=== PATIENT | male | born 1940 | race Caucasian/White ===

== ENCOUNTER 2018-09-06 18:55 | Inpatient (IN) ==
[2018-09-07] MEDS: Gabapentin 300 MG CAPSULE PO SCH (22:27)
[2018-09-07] MEDS: Vitamin B Complex/Vit C/Vit E 1 EACH TABLET PO SCH (22:28)
[2018-09-07] MEDS: Multivit/Ca/Min/Fe/FA 1 TAB TABLET PO SCH (22:28)
[2018-09-07] MEDS: BOSWELLIA SERRA PO SCH (22:38)
[2018-09-07] MEDS: D3 PO SCH (22:38)
[2018-09-07] MEDS: GLUCOSAMINE PO SCH (22:38)
[2018-09-08 06:12] LABS: Basophils % 0.2 %; Eosinophils # 0.2 K/mcL (0.0-0.6); Eosinophils % 1.5 %; Hematocrit 26.1 % (37.5-50.1); Hemoglobin 8.8 g/dL (12.9-16.9); Immature Granulocytes % 0.8 % (0-4); Lymphocytes # 1.7 K/mcL (0.6-4.6); Lymphocytes % 15.3 %; Mean Corpuscular HGB Conc 33.7 g/dL (31.6-35.5); Mean Corpuscular Hemoglobin 30.3 pg (28.0-33.3); Mean Platelet Volume 8.5 fL (9.4-12.4); Monocytes # 1.1 K/mcL (0.0-1.3); Monocytes % 10.4 %; Neutrophils # 7.8 K/mcL (1.6-8.9); Platelet Count 241 K/mcL (140-400); Red Cell Distribution Width 12.5 % (11.5-14.5); Segmented Neutrophils % 71.8 %
[2018-09-08 06:33] LABS: INR 1.2; Prothrombin Time 13.6 Seconds (9.4-12.1)
[2018-09-08 06:36] LABS: Activated Partial Thrombo Time 26.9 Seconds (26.0-36.0)
[2018-09-08 06:38] LABS: BUN/Creatinine Ratio 10 (6-26); Blood Urea Nitrogen 12 mg/dL (8-23); Calcium 8.5 mg/dL (8.6-10.3); Carbon Dioxide 24 mEq/L (23-29); Chloride 105 mEq/L (98-107); Glucose 229 mg/dL (70-105); Osmolality,Calculated 285 (280-300); Potassium 4.7 mEq/L (3.5-5.1); Sodium 134 mEq/L (136-145); eGFR For Non-African Americans > 60 (> 60)
[2018-09-08] MEDS: Lisinopril 20 MG TABLET PO SCH (09:54)
[2018-09-08] MEDS: (Ubidecarenone [Co Q-10] 200 MG) PO SCH (09:54)
[2018-09-08] MEDS: Gabapentin 300 MG CAPSULE PO SCH ×3 (09:55→20:26)
--- NOTE | 2018-09-08 13:47 | Internal Med History&Physical ---
Addendum entered and electronically signed by Kishore Terrell DO 09/10/18 11:21: I have personally performed a face to face evaluation on this patient. I have reviewed and agree with the care plan. History and Exam by me shows: Original Note: Date of Encounter: 09/08/18 Time of Encounter: 13:39 Assessment and Plan (1) S/P colostomy Current visit: Yes Status: Acute Patient having stool. Denies abdominal pain. Will monitor. (2) Bladder cancer Current visit: Yes Status: Chronic Follow-up with oncology as scheduled. Qualifiers: Bladder location: unspecified site Qualified Code(s): C67.9 - Malignant neoplasm of bladder, unspecified (3) Hypothyroidism Current visit: Yes Status: Acute Continue current medication. Qualifiers: Hypothyroidism type: unspecified Qualified Code(s): E03.9 - Hypothyroidism, unspecified (4) Diabetes type 2, controlled Current visit: Yes Status: Chronic Continue current medication. Monitor fingerstick blood sugar. Will adjust m edicines as necessary. Qualifiers: Diabetes mellitus fdc insulin use: without terminal operator use Diabetes mellitus complication status: without complication Qualified Code(s): E11.9 - Type 2 diabetes mellitus without complications (5) HLD (hyperlipidemia) Current visit: Yes Status: Chronic Continue current medication. Qualifiers: Hyperlipidemia type: unspecified Qualified Code(s): E78.5 - Hyperlipidemia, unspecified (6) HTN (hypertension) Current visit: Yes Status: Acute Controlled with current medication. Monitor blood pressure. Qualifiers: Hypertension type: essential hypertension Qualified Code(s): I10 - Essential (primary) hypertension Internal Medicine - H&P: HPI Admitted From: Hospital to Hospital Transfer Plans for Post Hospital Care: Home History of present illness: Mr. Ramirez is a 78 year old male admitted to rehab s/p cystectomy and prosta tectomy. Ambulating with Walker in hallway with contact guard assist. States pain is controlled with current medication. Also had pelvic lymph node dissection and ileal conduit diversion on August 13 for bladder cancer. Was admitted to hospital with fever, elevated white count and diarrhea. Was treated for sepsis with IV fluids and oral vancomycin. tested negative for c-diff. Past medical history includes anxiety, CAD, hypothyroidism diabetes, Gerd, hyperlipidemia, hypertension, kidney stone, malignant neoplasm of the bladder and obstructive sleep apnea. at bedside. Past Med Surg Social Fam HX - Past Medical History Medical history: cancer, coronary artery disease, diabetes, GERD, hyperlipidemia, hypertension, kidney stones, thyroid disease Additional medical history: Bladder Cancer Psychiatric history: depression - Past Surgical History Surgical History: cancer surgery, cataract, orthopedic, other, other Additional surgical history: nephrectomy, lithotripsy - Social History Smoking Status: Never smoker Smokeless Tobacco Status: No Alcohol use: none Drug use: none - Family History Father Adopted: No Family Member Ethnicity: Non- Living Status: Hx Family Cardiac Disorders: No Hx Family Respiratory Disorders: No Hx Family Cancer: Yes (Prostate) Hx Family GI Disorders: No Hx Family Endocrine Disorder: No Hx Family Neuromuscular Disorders: No Hx Family Neurologic Disorders: No Hx Family HEENT Disorders: No Hx Family Autoimmune Disorders: No Mother Living Status: Hx Family Cardiac Disorders: Yes (Hypertension) Hx Family Cancer: Yes (Colon) Hx Family Endocrine Disorder: Yes (diabetes) Internal Medicine - H&P: Meds Glucosamine/D3/Boswellia Msasiel [Osteo Bi-Flex Tablet] 2 tab PO HS 11/27/16 [History] Lansoprazole [Prevacid] 60 mg PO BID 11/27/16 [History] Polyethylene Glycol 3350 [MiraLAX] 17 gm PO DAILY 11/27/16 [History] Ubidecarenone [Co Q-10] 200 mg PO DAILY 11/27/16 [History] Gabapentin [Neurontin] 300 mg PO TID 01/08/17 [History] Glimepiride [Amaryl] 4 mg PO DAILY PRN 01/08/17 [History] Lisinopril [Zestril] 20 mg PO DAILY 01/08/17 [History] Aspirin 81 mg PO DAILY 09/18/17 [History] Docusate Sodium [Dok] 100 mg PO HS 09/18/17 [History] Escitalopram [Lexapro] 10 mg PO BID 09/18/17 [History] Levothyroxine [Synthroid] 50 mcg PO QAM 09/18/17 [History] Multivit-Min/FA/Lycopen/Lutein [Centrum Silver Tablet] 1 tab PO HS 09/18/17 [History] Pravastatin Sodium [Pravachol] 40 mg PO DAILY 09/18/17 [History] Vitamin B Complex Vit C No.4 [Super B Complex] 1 tab PO HS 09/18/17 [History] Metformin HCl [Glucophage] 1,000 mg PO BID #90 09/19/17 [Rx] Acetaminophen [Pain Relief] 1,000 mg PO BID 11/11/17 [History] Meloxicam [Mobic] 7.5 mg PO DAILY 02/18/18 [History] Oxybutynin [Ditropan] 5 mg PO DAILY 06/18/18 [History] HYDROcodone/Acet 5/325 mg [Bowdle 5-325 mg] 1 tab PO Q6H PRN 10 Days #3 tab 08/02/18 [Rx] Oxybutynin [Ditropan] 5 mg PO TID #30 tablet 08/02/18 [Rx] Allergy/AdvReac Type Severity Reaction Status Date / Time Penicillins Allergy Hives Verified 08/02/18 12:03 All Systems PM: A 10-system review of systems was performed and is negative for pertinent findings except as documented above in the HPI. - Constitutional Constitutional: no chills, no fever(s), no night sweats - EENT Eyes: no change in vision, no discharge, no pain, no photophobia Ears: no ear discharge, no ear pain, no tinnitus Nose, mouth and throat: no dysphagia, no nasal discharge, no neck pain, no sore throat - Cardiovascular Cardiovascular ROS IM: no chest pain, no diaphoresis, no dyspnea, no lightheadedness, no palpitations, no syncope - Respiratory Respiratory: no cough, no dyspnea, no wheezing, no excessive phlegm production - Gastrointestinal Gastrointestinal: no abdominal pain, no diarrhea, no hematemesis, no hematochezia, no melena, no nausea, no vomiting - Musculoskeletal Musculoskeletal ROS IM: no numbness, no tingling - Integumentary Integumentary IM: no rash, no unusual bruising - Neurological Neurological ROS: no confusion, no convulsions, no focal weakness, no numbness, no tingling, no tremor(s) - Hematologic/Lymphatic Hematologic/Lymphatic: no easy bruising - Constitutional Vitals: Temp Pulse Resp BP Pulse Ox 97.3 F L 95 17 128/76 98 09/08/18 12:28 09/08/18 12:28 09/08/18 12:28 09/08/18 12:28 09/08/18 12:28 General appearance: Present: cooperative, A&O X 3, pleasant, no acute distress, answers questions appropriately - Head Head exam: Present: atraumatic, normocephalic - Eye Eye exam: Present: PERRL, conjuntiva pink, sclera anicteric Pupils: Present: PERRL - Neck Neck exam general surgery: Present: supple, trachea midline. Absent: lymphadeno arnoldo - Respiratory Respiratory exam: Present: CTAB. Absent: accessory muscle use, rales, rhonchi, wheezes - Cardiovascular Cardiovascular exam: Present: RRR, +S1, +S2. Absent: diastolic murmur, gallop, rubs, systolic murmur - GI/Abdominal GI/Abdominal exam: Present: normal bowel sounds, soft, no peritoneal signs. Absent: distended, tenderness Additional comments: Palmer catheter in place and colostomy on right abdomen draining. Stoma red with white-karey drainage surrounding. - Extremities Exam Extremities exam: Present: warm, radial pulses palpable and symmetrical. Absent: calf tenderness, cyanotic, pedal edema - Neurological Exam Neurological exam: Present: CN II-XII intact, oriented X3, no focal deficits. Absent: pronater drift, facial droop, speech deficit - Skin Skin exam: Present: dry, intact Additional comments: Old left abdomen drain site. Drain was pulled yesterday. Area is having mode rate amount of serous drainage. Internal Med - H&P Results - Labs CBC & Chem 7: 09/08/18 05:50 09/08/18 05:50 Labs: Short CBC 09/08/18 Range/Units 05:50 WBC 10.8 D (4.3-11.1) K/mcL Hgb 8.8 L (12.9-16.9) g/dL Hct 26.1 L (37.5-50.1) % Plt Count 241 (140-400) K/mcL Neutrophils # 7.8 (1.6-8.9) K/mcL BMP 09/08/18 05:50 Sodium 134 L Potassium 4.7 Chloride 105 Carbon Dioxide 24 BUN 12 Creatinine 1.18 Glucose 229 H Calcium 8.5 L
[2018-09-08] MEDS: Vitamin B Complex/Vit C/Vit E 1 EACH TABLET PO SCH (20:26)
[2018-09-08] MEDS: Multivit/Ca/Min/Fe/FA 1 TAB TABLET PO SCH (20:26)
[2018-09-08] MEDS: BOSWELLIA SERRA PO SCH (20:26)
[2018-09-08] MEDS: D3 PO SCH (20:26)
[2018-09-08] MEDS: GLUCOSAMINE PO SCH (20:26)
[2018-09-09] MEDS: *HR* HYDROcodone/Acet 5/325 mg TABLET PO PRN ×2 (02:34→19:43)
[2018-09-09] MEDS: Lisinopril 20 MG TABLET PO SCH (10:31)
[2018-09-09] MEDS: Gabapentin 300 MG CAPSULE PO SCH ×3 (10:33→19:43)
[2018-09-09] MEDS: (Ubidecarenone [Co Q-10] 200 MG) PO SCH (10:35)
[2018-09-09] MEDS ORDERED: *HR* Dextrose 50 % in Water (Syg) 50 ML SYRINGE IVP PRN (12:11)
[2018-09-09] MEDS ORDERED: Dextrose Gel 15 GM/37.5 ML TUBE PO PRN ×2 (12:11)
[2018-09-09] MEDS ORDERED: D5% in Water 1,000 ML IVC PRN (12:11)
[2018-09-09] MEDS: Insulin LISPRO 300 UNITS/3 ML VIAL SQ SCH ×3 (12:31→20:58)
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
[2018-09-09] MEDS ORDERED: Insulin LISPRO 300 UNITS/3 ML VIAL SQ SCH (16:30)
[2018-09-09] MEDS: Vitamin B Complex/Vit C/Vit E 1 EACH TABLET PO SCH (19:43)
[2018-09-09] MEDS: Multivit/Ca/Min/Fe/FA 1 TAB TABLET PO SCH (19:43)
[2018-09-09] MEDS: BOSWELLIA SERRA PO SCH (19:44)
[2018-09-09] MEDS: GLUCOSAMINE PO SCH (19:44)
[2018-09-09] MEDS: D3 PO SCH (19:44)
[2018-09-10] MEDS: Lisinopril 20 MG TABLET PO SCH (08:43)
[2018-09-10] MEDS: Insulin LISPRO 300 UNITS/3 ML VIAL SQ SCH ×4 (08:44→21:53)
[2018-09-10] MEDS: Gabapentin 300 MG CAPSULE PO SCH ×3 (08:44→21:56)
[2018-09-10] MEDS: (Ubidecarenone [Co Q-10] 200 MG) PO SCH (08:45)
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
[2018-09-10] MEDS ORDERED: Insulin DETEMIR 100 UNIT/ML X5UNITS SQ SCH (21:00)
[2018-09-10] MEDS: Multivit/Ca/Min/Fe/FA 1 TAB TABLET PO SCH (21:56)
[2018-09-10] MEDS: *HR* HYDROcodone/Acet 5/325 mg TABLET PO PRN (21:57)
[2018-09-10] MEDS: Vitamin B Complex/Vit C/Vit E 1 EACH TABLET PO SCH (21:58)
[2018-09-10] MEDS: GLUCOSAMINE PO SCH (21:59)
[2018-09-10] MEDS: BOSWELLIA SERRA PO SCH (21:59)
[2018-09-10] MEDS: D3 PO SCH (21:59)
[2018-09-11] MEDS: *HR* HYDROcodone/Acet 5/325 mg TABLET PO PRN (05:12)
[2018-09-11] MEDS: Lisinopril 20 MG TABLET PO SCH (08:17)
[2018-09-11] MEDS: Gabapentin 300 MG CAPSULE PO SCH ×3 (08:17→20:48)
[2018-09-11] MEDS: (Ubidecarenone [Co Q-10] 200 MG) PO SCH (08:18)
[2018-09-11] MEDS: Insulin LISPRO 300 UNITS/3 ML VIAL SQ SCH ×4 (08:19→20:50)
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
[2018-09-11] MEDS: Multivit/Ca/Min/Fe/FA 1 TAB TABLET PO SCH (20:47)
[2018-09-11] MEDS: Vitamin B Complex/Vit C/Vit E 1 EACH TABLET PO SCH (20:47)
[2018-09-11] MEDS: Lactobacillus 1 EACH CAP.SPRINK PO SCH (20:48)
[2018-09-11] MEDS: GLUCOSAMINE PO SCH (20:48)
[2018-09-11] MEDS: D3 PO SCH (20:48)
[2018-09-11] MEDS: BOSWELLIA SERRA PO SCH (20:48)
[2018-09-11] MEDS: Simethicone 80 MG TAB.CHEW PO SCH (20:48)
[2018-09-11] MEDS: Insulin DETEMIR 100 UNIT/ML X5UNITS SQ SCH (20:50)
[2018-09-12 05:13] LABS: Hematocrit 28.6 % (37.5-50.1); Hemoglobin 9.4 g/dL (12.9-16.9); Mean Corpuscular HGB Conc 32.9 g/dL (31.6-35.5); Mean Corpuscular Hemoglobin 29.8 pg (28.0-33.3); Mean Corpuscular Volume 90.8 fL (83.0-100.0); Mean Platelet Volume 8.6 fL (9.4-12.4); Platelet Count 304 K/mcL (140-400); Red Blood Count 3.15 M/mcL (4.19-5.50); Red Cell Distribution Width 12.7 % (11.5-14.5)
[2018-09-12 05:32] LABS: Calcium 9.3 mg/dL (8.6-10.3); Potassium 4.6 mEq/L (3.5-5.1)
[2018-09-12] MEDS: Lactobacillus 1 EACH CAP.SPRINK PO SCH ×2 (08:26→19:54)
[2018-09-12] MEDS: Gabapentin 300 MG CAPSULE PO SCH ×3 (08:26→19:54)
[2018-09-12] MEDS: (Ubidecarenone [Co Q-10] 200 MG) PO SCH (08:27)
[2018-09-12] MEDS: Simethicone 80 MG TAB.CHEW PO SCH ×2 (08:27→19:55)
[2018-09-12] MEDS: Lisinopril 20 MG TABLET PO SCH (08:27)
[2018-09-12] MEDS: Insulin LISPRO 300 UNITS/3 ML VIAL SQ SCH ×4 (08:28→20:01)
--- NOTE | 2018-09-12 12:41 | Internal Med Progress Note ---
Addendum entered and electronically signed by Luis F Nava MD 09/12/18 14:46: Patient is concerned about feeling fatigued all the time. He is also concerned about his high sugar. I told him and that we would watch and is no sign of infection, symptomatically or otherwise. If symptoms change, they know that they are to inform us. Discussed care with other providers and/or nursing. Patient has no complaint of chest discomfort, dyspnea, orthopnea, palpitations, nausea or vomiting, constipation or diarrhea, other changes in bowel habits, difficulty with urination, rash or itching, or other new complaints, except as mentioned above. Review of systems is otherwise negative. Examination: (Except as mentioned above): General: In no apparent distress. Alert and oriented 3. Nondiaphoretic. Head: Atraumatic and normocephalic. Respiratory: No use of accessory muscles. Extremities: No cyanosis clubbing or edema. Skin: Warm and non-diaphoretic with no new lesions noted. Original Note: Date of Encounter: 09/12/18 Time of Encounter: 12:39 - Assessment and plan (1) Diabetes Current Visit: No Status: Resolved Assessment and plan: Patient's glucose continues to have multiple elevated readings greater than 300. Patient recently increased on Levemir insulin to 15 units daily at bedtime. We will continue with fingersticks and sliding scale coverage and reevaluate patient's long-acting needs tomorrow. Currently no signs of infectious process noted. Urinalysis pending Qualifiers: Diabetes mellitus type: type 2 Diabetes mellitus complication status: without complication Qualified Code(s): E11.9 - Type 2 diabetes mellitus without complications (2) Bladder cancer Current Visit: Yes Status: Chronic Assessment and plan: No acute issues. Patient continues to have a reduced amount of serous type drainage from his left lower quadrant drainage wound. No erythema or signs of infection. We will continue with pressure-type dressings to left lower quadrant wound. Afebrile. Right lower quadrant ileal conduit stoma appears healthy with cloudy yellow urine received. Urinalysis pending. Patient denies any current discomforts. Physical therapy progressing well. We will continue with current plan of care. We will have nursing notify patient's surgeon to alert him that left lower quadrant site continues to drain moderate amount of peritoneal-type fluid. Qualifiers: Bladder location: unspecified site Qualified Code(s): C67.9 - Malignant neoplasm of bladder, unspecified - Time Spent With Patient less than 15 minutes - Subjective Interval history: Patient appears relaxed and currently denies any discomforts or shortness of breath. Per nursing patient's glucose continues to remain slightly elevated with several readings greater than 300. Patient denies any symptoms. Patient states physical therapy is progressing well. Patient states that his pain is well-controlled with current medications - Constitutional Vitals: Temp Pulse Resp BP Pulse Ox 98.5 F 104 16 138/82 93 09/12/18 09:00 09/12/18 09:00 09/12/18 09:00 09/12/18 09:00 09/12/18 09:00 General appearance: Present: cooperative, A&O X 3, pleasant, no acute distress, answers questions appropriately - Head Head exam: Present: atraumatic, normocephalic - Eye Eye exam: Present: PERRL, conjuntiva pink, sclera anicteric Pupils: Present: PERRL - Neck Neck exam general surgery: Present: supple, trachea midline. Absent: lymphade nopathy - Respiratory Respiratory exam: Present: CTAB. Absent: accessory muscle use, rales, rhonchi, wheezes - Cardiovascular Cardiovascular exam: Present: RRR, +S1, +S2. Absent: diastolic murmur, gallop, rubs, systolic murmur - GI/Abdominal GI/Abdominal exam: Present: normal bowel sounds, soft, no peritoneal signs. Absent: distended, tenderness Additional comments: Abdomen remains soft and nondistended. Right lower quadrant ileal conduit with stoma site appearing healthy and cloudy yellow urine received. Left lower quadrant incision from previous drain remains slightly open with a minimal amount of peritoneal type drainage received. No erythema noted at site. - Extremities Exam Extremities exam: Present: warm, radial pulses palpable and symmetrical. Absent: calf tenderness, cyanotic, pedal edema - Neurological Exam Neurological exam: Present: CN II-XII intact, oriented X3, no focal deficits. Absent: pronater drift, facial droop, speech deficit - Skin Skin exam: Present: dry, intact Internal Medicine: Result - Labs CBC & Chem 7: 09/12/18 04:30 09/12/18 04:30 Labs: Short CBC 09/12/18 Range/Units 04:30 WBC 11.3 H (4.3-11.1) K/mcL Hgb 9.4 L (12.9-16.9) g/dL Hct 28.6 L (37.5-50.1) % Plt Count 304 (140-400) K/mcL BMP 09/12/18 04:30 Sodium 133 L Potassium 4.6 Chloride 98 Carbon Dioxide 25 BUN 30 H Creatinine 1.41 H Glucose 170 H Calcium 9.3 - ABG Interpretation ABG results: PT/INR, D-dimer PT 13.6 Seconds (9.4-12.1) H 09/08/18 05:50 Consult Discharge Plan - Plan Referrals: Kofi Reeves MD [Primary Care Provider] -
[2018-09-12 13:12] LABS: Bilirubin,Urine Negative (Negative); Blood,Urine Small (Negative); Clarity,Urine Cloudy (Clear); Color,Urine Yellow (Yellow); Glucose,Urine (UA) 500 mg/dL (Normal); Ketones,Urine Negative (Negative); Leukocyte Esterase,Urine Large (Negative); Nitrite,Urine Negative (Negative); PH,Urine 6.5 pH Units (5.0-8.0); Protein,Urine 30 mg/dL (Neg-Trace); Specific Gravity,Urine 1.015 (1.010-1.025); Urobilinogen,Urine Normal (Normal)
[2018-09-12 13:29] LABS: Bacteria,Urine Many per hpf (None-Few); WBC,Urine TNTC per hpf (0-3)
[2018-09-12] MEDS: Multivit/Ca/Min/Fe/FA 1 TAB TABLET PO SCH (19:54)
[2018-09-12] MEDS: Vitamin B Complex/Vit C/Vit E 1 EACH TABLET PO SCH (19:54)
[2018-09-12] MEDS: Insulin DETEMIR 100 UNIT/ML X5UNITS SQ SCH (20:00)
[2018-09-12] MEDS: GLUCOSAMINE PO SCH (20:03)
[2018-09-12] MEDS: BOSWELLIA SERRA PO SCH (20:03)
[2018-09-12] MEDS: D3 PO SCH (20:03)
[2018-09-13 06:17] LABS: Hematocrit 24.7 % (37.5-50.1); Hemoglobin 8.2 g/dL (12.9-16.9); Mean Corpuscular HGB Conc 33.2 g/dL (31.6-35.5); Mean Corpuscular Hemoglobin 29.8 pg (28.0-33.3); Mean Corpuscular Volume 89.8 fL (83.0-100.0); Mean Platelet Volume 8.3 fL (9.4-12.4); Platelet Count 291 K/mcL (140-400); Red Blood Count 2.75 M/mcL (4.19-5.50); Red Cell Distribution Width 12.6 % (11.5-14.5)
[2018-09-13 06:31] LABS: Alanine Aminotransferase 19 Units/L (7-52); Albumin 2.6 g/dL (3.5-5.7); Albumin/Globulin Ratio 0.8 (1.1-2.2); Alkaline Phosphatase 59 Units/L (34-104); Aspartate Amino Transferase 10 Units/L (13-39); BUN/Creatinine Ratio 18 (6-26); Bilirubin,Total 0.2 mg/dL (0.3-1.0); Blood Urea Nitrogen 24 mg/dL (8-23); Calcium 9.1 mg/dL (8.6-10.3); Carbon Dioxide 27 mEq/L (23-29); Chloride 100 mEq/L (98-107); Globulin 3.2 g/dL (2.4-3.5); Glucose 95 mg/dL (70-105); Magnesium 1.4 mg/dL (1.6-2.6); Osmolality,Calculated 282 (280-300); Potassium 4.3 mEq/L (3.5-5.1); Sodium 134 mEq/L (136-145); Total Protein 5.8 g/dL (6.4-8.9); eGFR For Non-African Americans 51 (> 60)
[2018-09-13 07:28] LABS: Thyroid Stimulating Hormone 0.366 mcIU/mL (0.340-5.600)
[2018-09-13] MEDS: Insulin LISPRO 300 UNITS/3 ML VIAL SQ SCH ×4 (07:52→21:21)
[2018-09-13] MEDS: Gabapentin 300 MG CAPSULE PO SCH ×3 (09:18→21:16)
[2018-09-13] MEDS: *HR* HYDROcodone/Acet 5/325 mg TABLET PO PRN (09:18)
[2018-09-13] MEDS: Lisinopril 20 MG TABLET PO SCH (09:18)
[2018-09-13] MEDS: Simethicone 80 MG TAB.CHEW PO SCH ×2 (09:18→21:18)
[2018-09-13] MEDS: (Ubidecarenone [Co Q-10] 200 MG) PO SCH (09:19)
[2018-09-13] MEDS: Lactobacillus 1 EACH CAP.SPRINK PO SCH ×2 (09:19→21:16)
[2018-09-13 13:36] LABS: Estimated Average Glucose 180 mg/dl; Hemoglobin A1C 7.9 %
--- NOTE | 2018-09-13 14:30 | Internal Med Progress Note ---
Addendum entered and electronically signed by Lui sF Nava MD 09/14/18 11:51: Multiple attempts to see patient were unsuccessful because he was with other providers or in therapies. Original Note: Date of Encounter: 09/13/18 Time of Encounter: 14:28 - Assessment and plan (1) S/P colostomy Current Visit: Yes Status: Acute Assessment and plan: Normal colostomy. Educating patients to take over care of changing colostomy (2) Bladder cancer Current Visit: Yes Status: Chronic Assessment and plan: Follow-up with oncology as scheduled. Qualifiers: Bladder location: unspecified site Qualified Code(s): C67.9 - Malignant neoplasm of bladder, unspecified (3) Diabetes type 2, controlled Current Visit: Yes Status: Chronic Assessment and plan: Controlled. Continue to monitor fingerstick blood sugar. Continue current medications. Qualifiers: Diabetes mellitus exterminator insulin use: without exterminator use Diabetes mellitus complication status: without complication Qualified Code(s): E11.9 - Type 2 diabetes mellitus without complications (4) HTN (hypertension) Current Visit: Yes Status: Acute Assessment and plan: Controlled with current medication. Monitor blood pressure. Qualifiers: Hypertension type: essential hypertension Qualified Code(s): I10 - Essential (primary) hypertension - Constitutional Vitals: Temp Pulse Resp BP Pulse Ox 97.0 F L 80 18 131/80 93 09/13/18 07:47 09/13/18 07:47 09/13/18 07:47 09/13/18 07:47 09/13/18 07:47 General appearance: Present: cooperative, A&O X 3, pleasant, no acute distress, answers questions appropriately - Head Head exam: Present: atraumatic, normocephalic - Eye Eye exam: Present: PERRL, conjuntiva pink, sclera anicteric Pupils: Present: PERRL - Neck Neck exam general surgery: Present: supple, trachea midline. Absent: lymphadenopathy - Respiratory Respiratory exam: Present: CTAB. Absent: accessory muscle use, rales, rhonchi, wheezes - Cardiovascular Cardiovascular exam: Present: RRR, +S1, +S2. Absent: diastolic murmur, gallop, rubs, systolic murmur - GI/Abdominal GI/Abdominal exam: Present: normal bowel sounds, soft, no peritoneal signs. Absent: distended, tenderness - Extremities Exam Extremities exam: Present: warm, radial pulses palpable and symmetrical. Absent: calf tenderness, cyanotic, pedal edema - Neurological Exam Neurological exam: Present: CN II-XII intact, oriented X3, no focal deficits. Absent: pronater drift, facial droop, speech deficit - Skin Skin exam: Present: dry, intact Additional comments: Colostomy stoma normal. Internal Medicine: Result - Labs CBC & Chem 7: 09/13/18 05:40 09/13/18 05:40 Labs: Short CBC 09/13/18 Range/Units 05:40 WBC 8.6 (4.3-11.1) K/mcL Hgb 8.2 L (12.9-16.9) g/dL Hct 24.7 L (37.5-50.1) % Plt Count 291 (140-400) K/mcL BMP 09/13/18 05:40 Sodium 134 L Potassium 4.3 Chloride 100 Carbon Dioxide 27 BUN 24 H Creatinine 1.36 H Glucose 95 Calcium 9.1 Liver Function 09/13/18 Range/Units 05:40 Total Bilirubin 0.2 L (0.3-1.0) mg/dL AST 10 L (13-39) Units/L ALT 19 (7-52) Units/L Alkaline Phosphatase 59 (34-104) Units/L Albumin 2.6 L (3.5-5.7) g/dL - ABG Interpretation ABG results: PT/INR, D-dimer PT 13.6 Seconds (9.4-12.1) H 09/08/18 05:50 Consult Discharge Plan - Plan Referrals: Kofi Reeves MD [Primary Care Provider] -
[2018-09-13] MEDS: Vitamin B Complex/Vit C/Vit E 1 EACH TABLET PO SCH (21:17)
[2018-09-13] MEDS: Multivit/Ca/Min/Fe/FA 1 TAB TABLET PO SCH (21:17)
[2018-09-13] MEDS: Insulin DETEMIR 100 UNIT/ML X5UNITS SQ SCH (21:20)
[2018-09-13] MEDS: GLUCOSAMINE PO SCH (21:32)
[2018-09-13] MEDS: D3 PO SCH (21:32)
[2018-09-13] MEDS: BOSWELLIA SERRA PO SCH (21:32)
[2018-09-13] MEDS ORDERED: Ondansetron ODT 4 MG TAB.RAPDIS SL PRN (22:55)
[2018-09-14] MEDS: Insulin LISPRO 300 UNITS/3 ML VIAL SQ SCH ×4 (08:15→20:49)
[2018-09-14] MEDS: Lisinopril 20 MG TABLET PO SCH (08:31)
[2018-09-14] MEDS: Simethicone 80 MG TAB.CHEW PO SCH ×2 (08:31→20:42)
[2018-09-14] MEDS: Gabapentin 300 MG CAPSULE PO SCH ×3 (08:31→20:43)
[2018-09-14] MEDS: Lactobacillus 1 EACH CAP.SPRINK PO SCH ×2 (08:31→20:43)
[2018-09-14] MEDS: (Ubidecarenone [Co Q-10] 200 MG) PO SCH (08:36)
[2018-09-14 09:31] LABS: Hematocrit 28.6 % (37.5-50.1); Hemoglobin 9.4 g/dL (12.9-16.9); Mean Corpuscular HGB Conc 32.9 g/dL (31.6-35.5); Mean Corpuscular Hemoglobin 29.7 pg (28.0-33.3); Mean Corpuscular Volume 90.2 fL (83.0-100.0); Mean Platelet Volume 8.5 fL (9.4-12.4); Platelet Count 349 K/mcL (140-400); Red Blood Count 3.17 M/mcL (4.19-5.50); Red Cell Distribution Width 12.6 % (11.5-14.5)
[2018-09-14 10:24] LABS: BUN/Creatinine Ratio 21 (6-26); Blood Urea Nitrogen 28 mg/dL (8-23); Calcium 9.5 mg/dL (8.6-10.3); Carbon Dioxide 29 mEq/L (23-29); Chloride 94 mEq/L (98-107); Glucose 195 mg/dL (70-105); Osmolality,Calculated 283 (280-300); Potassium 4.4 mEq/L (3.5-5.1); Sodium 131 mEq/L (136-145); eGFR For Non-African Americans 52 (> 60)
--- NOTE | 2018-09-14 11:11 | Internal Med Progress Note ---
Addendum entered and electronically signed by Luis F Nava MD 09/14/18 11:52: I have personally performed a face to face evaluation on this patient. I have r eviewed and agree with the care plan. History and Exam by me shows: Patient denies acute complaints. He states that his fatigue is much better than a couple of days ago. He denies lightheadedness or dizziness and has no other focal points. He is pleased to be going home tomorrow. Discussed care with other providers and/or nursing. Patient has no complaint of chest discomfort, dyspnea, orthopnea, palpitations, nausea or vomiting, constipation or diarrhea, other changes in bowel habits, difficulty with urination, rash or itching, or other new complaints, except as mentioned above. Review of systems is otherwise negative. Examination: (Except as mentioned above): General: In no apparent distress. Alert and oriented 3. Nondiaphoretic. Head: Atraumatic and normocephalic. Respiratory: No use of accessory muscles. Lungs are clear throughout. Normal airflow. Cardiovascular: Regular rate and rhythm without murmur appreciated. Abdomen: Bowel sounds are normal. No hepatosplenomegaly mass or tenderness appreciated. Obese and therefore difficult to palpate deeply. Extremities: No cyanosis clubbing or edema. Skin: Warm and non-diaphoretic with no new lesions noted. Original Note: Date of Encounter: 09/14/18 Time of Encounter: 11:09 - Assessment and plan (1) S/P colostomy Current Visit: Yes Status: Acute Assessment and plan: Normal colostomy. Educating patients to take over care of changing colostomy (2) Bladder cancer Current Visit: Yes Status: Chronic Assessment and plan: Follow-up with oncology as scheduled. Qualifiers: Bladder location: unspecified site Qualified Code(s): C67.9 - Malignant siobhan plasm of bladder, unspecified (3) Diabetes type 2, controlled Current Visit: Yes Status: Chronic Assessment and plan: Controlled. Continue to monitor fingerstick blood sugar. Continue current medications. Qualifiers: Diabetes mellitus filler leaf cutter long insulin use: without halfway use Diabetes mellitus complication status: without complication Qualified Code(s): E11.9 - Type 2 diabetes mellitus without complications (4) HTN (hypertension) Current Visit: Yes Status: Acute Assessment and plan: Controlled with current medication. Monitor blood pressure. Qualifiers: Hypertension type: essential hypertension Qualified Code(s): I10 - Essential (primary) hypertension - Time Spent With Patient less than 15 minutes - Subjective Interval history: Participating well with therapy. Ambulating in hallway with Walker. being educated colostomy care. Patient denies fever, chills, nausea, vomiting or diarrhea. Denies shortness of breath or chest pain. - Constitutional Vitals: Temp Pulse Resp BP Pulse Ox 98.7 F 88 16 138/80 93 09/14/18 07:19 09/14/18 07:19 09/14/18 07:19 09/14/18 07:19 09/14/18 07:19 General appearance: Present: cooperative, A&O X 3, pleasant, no acute distress, answers questions appropriately - Head Head exam: Present: atraumatic, normocephalic - Eye Eye exam: Present: PERRL, conjuntiva pink, sclera anicteric Pupils: Present: PERRL - Neck Neck exam general surgery: Present: supple, trachea midline. Absent: lymphadenopathy - Respiratory Respiratory exam: Present: CTAB. Absent: accessory muscle use, rales, rhonchi, wheezes - Cardiovascular Cardiovascular exam: Present: RRR, +S1, +S2. Absent: diastolic murmur, gallop, rubs, systolic murmur - GI/Abdominal GI/Abdominal exam: Present: normal bowel sounds, soft, no peritoneal signs. Absent: distended, tenderness - Extremities Exam Extremities exam: Present: warm, radial pulses palpable and symmetrical. Absent: calf tenderness, cyanotic, pedal edema - Neurological Exam Neurological exam: Present: CN II-XII intact, oriented X3, no focal deficits. Absent: pronater drift, facial droop, speech deficit - Skin Skin exam: Present: dry, intact Internal Medicine: Result - Labs CBC & Chem 7: 09/14/18 08:43 09/14/18 08:43 Labs: Short CBC 09/14/18 Range/Units 08:43 WBC 9.6 (4.3-11.1) K/mcL Hgb 9.4 L (12.9-16.9) g/dL Hct 28.6 L (37.5-50.1) % Plt Count 349 (140-400) K/mcL BMP 09/14/18 08:43 Sodium 131 L Potassium 4.4 Chloride 94 L Carbon Dioxide 29 BUN 28 H Creatinine 1.34 H Glucose 195 H Calcium 9.5 - ABG Interpretation ABG results: PT/INR, D-dimer PT 13.6 Seconds (9.4-12.1) H 09/08/18 05:50 Consult Discharge Plan - Plan Referrals: Kofi Reeves MD [Primary Care Provider] -
[2018-09-14] MEDS: Vitamin B Complex/Vit C/Vit E 1 EACH TABLET PO SCH (20:44)
[2018-09-14] MEDS: Multivit/Ca/Min/Fe/FA 1 TAB TABLET PO SCH (20:44)
[2018-09-14] MEDS: D3 PO SCH (20:45)
[2018-09-14] MEDS: BOSWELLIA SERRA PO SCH (20:45)
[2018-09-14] MEDS: GLUCOSAMINE PO SCH (20:45)
[2018-09-14] MEDS: Insulin DETEMIR 100 UNIT/ML X5UNITS SQ SCH (20:49)
[2018-09-15 06:17] LABS: Hematocrit 25.6 % (37.5-50.1); Hemoglobin 8.6 g/dL (12.9-16.9); Mean Corpuscular HGB Conc 33.6 g/dL (31.6-35.5); Mean Corpuscular Hemoglobin 30.2 pg (28.0-33.3); Mean Corpuscular Volume 89.8 fL (83.0-100.0); Mean Platelet Volume 8.3 fL (9.4-12.4); Platelet Count 305 K/mcL (140-400); Red Blood Count 2.85 M/mcL (4.19-5.50); Red Cell Distribution Width 12.7 % (11.5-14.5)
[2018-09-15 06:26] LABS: Calcium 9.1 mg/dL (8.6-10.3); Potassium 4.6 mEq/L (3.5-5.1)
[2018-09-15 07:13] VITALS: BP 143/80
[2018-09-15] MEDS: Lisinopril 20 MG TABLET PO SCH (08:10)
[2018-09-15] MEDS: Simethicone 80 MG TAB.CHEW PO SCH (08:11)
[2018-09-15] MEDS: Lactobacillus 1 EACH CAP.SPRINK PO SCH (08:11)
[2018-09-15] MEDS: Gabapentin 300 MG CAPSULE PO SCH (08:11)
[2018-09-15] MEDS: Insulin LISPRO 300 UNITS/3 ML VIAL SQ SCH ×2 (08:12→11:50)
--- NOTE | 2018-09-15 10:04 | Discharge Summary ---
Addendum entered and electronically signed by Luis F Nava MD 09/15/18 10:39: I have personally performed a face to face evaluation on this patient. I have r eviewed and agree with the care plan. History and Exam by me shows: Patient has been instructed that he will go home on sliding scale insulin, insulin as ordered. He is not to resume Glucophage until instructed by his primary care physician. (This has not been used here, at all.) Discussed care with other providers and/or nursing. Patient has no complaint of chest discomfort, dyspnea, orthopnea, palpitations, nausea or vomiting, constipation or diarrhea, other changes in bowel habits, difficulty with urination, rash or itching, or other new complaints, except as mentioned above. Review of systems is otherwise negative. Examination: (Except as mentioned above): General: In no apparent distress. Alert and oriented 3. Nondiaphoretic. Head: Atraumatic and normocephalic. Respiratory: No use of accessory muscles. Lungs are clear throughout. Normal airflow. Cardiovascular: Regular rate and rhythm without murmur appreciated. Abdomen: Bowel sounds are normal. No hepatosplenomegaly mass or tenderness appreciated. Obese and therefore difficult to palpate deeply. Dressings dry and intact and ileostomy looks good. Extremities: No cyanosis clubbing or edema. Skin: Warm and non-diaphoretic with no new lesions noted. Original Note: Date of Encounter: 09/15/18 Time of Encounter: 09:59 - Discharge Diagnosis (1) Bladder cancer Priority: Primary Status: Chronic Comments: Patient was admitted to this facility for rehabilitation due to deconditioning secondary to his surgeries related to bladder cancer. Last month patient was admitted to the hospital and surgically treated for bladder cancer with a cystectomy and had a ileal conduit patient has progressed well during his stay at this facility with physical therapy. Patient's ileal conduit continues to have a healthy appearance to stoma with cloudy yellow urine received. Patient had a surgical wound to the left lower quadrant that had initially been draining what appeared to be peritoneal-type fluid at time of admission. Drainage has dropped off to a scant amount. Patient is continue follow-up with surgeon and urologist after discharge. Patient will continue with physical therapy through home health services. Has remained afebrile during his stay Qualifiers: Bladder location: unspecified site Qualified Code(s): C67.9 - Malignant neoplasm of bladder, unspecified (2) Diabetes Priority: Secondary Status: Chronic Comments: Patient with long history of type 2 diabetes. Patient was placed on a sliding scale at time of admission to this facility and was noted to have multiple readings greater than 300. Patient was started on long-acting insulin with Levemir insulin. Patient will continue with sliding scale coverage at home and will continue use of long-acting insulin. Patient is to follow up with PCP for further management. Qualifiers: Diabetes mellitus type: type 2 Diabetes mellitus complication status: without complication Qualified Code(s): E11.9 - Type 2 diabetes mellitus without complications Hospital course: Mr. Ramirez is a 78 year old male admitted to rehab s/p cystectomy and prostatectomy. Patient was recently surgically treated for bladder cancer with a pelvic lymph node dissection and ileal conduit diversion on August 13 . Patient had an uneventful recovery at Hospital and was discharged but was later readmitted to hospital with fever, elevated white count and diarrhea. He was treated for sepsis with IV fluids and oral vancomycin, although tested negative for c-diff. Ambulating with Walker in hallway with contact guard assist and has progressed well with physical therapy during his stay at this facility. States pain is controlled with current medication. Patient's glucose has been elevated greater than 300 most fingersticks at admission, and was started on a sliding scale insulin. Patient's glucose remained slightly elevated, requiring him to have Levemir long-acting insulin started. Patient is to continue with physical therapy by home health services. Patient is continue follow-up with his urologist and surgeon. Patient will be discharged home with a prescription for Humalog insulin and is to continue on a sliding scale. Patient is also to continue with long-acting insulin and will have a prescription for Levemir. Past medical history includes anxiety, CAD, hypothyroidism diabetes, Gerd, hyperlipidemia, hypertension, kidney stone, malignant neoplasm of the bladder and obstructive sleep apnea. Discharge discussed with: patient Time spent discussing smoking cessation with patient: 3 to 10 minutes - Time Spent with Patient Total time spent providing and/or coordinating discharge services: Less than 30 minutes - Discharge Medications Home Medications: Glucosamine/D3/Boswellia Massiel [Osteo Bi-Flex Tablet] 2 tab PO HS 11/27/16 [History] Lansoprazole [Prevacid] 60 mg PO BID 11/27/16 [History] Polyethylene Glycol 3350 [MiraLAX] 17 gm PO DAILY 11/27/16 [History] Ubidecarenone [Co Q-10] 200 mg PO DAILY 11/27/16 [History] Gabapentin [Neurontin] 300 mg PO TID 01/08/17 [History] Glimepiride [Amaryl] 4 mg PO DAILY PRN 01/08/17 [History] Lisinopril [Zestril] 20 mg PO DAILY 01/08/17 [History] Aspirin 81 mg PO DAILY 09/18/17 [History] Docusate Sodium [Dok] 100 mg PO HS 09/18/17 [History] Escitalopram [Lexapro] 10 mg PO BID 09/18/17 [History] Levothyroxine [Synthroid] 50 mcg PO QAM 09/18/17 [History] Multivit-Min/FA/Lycopen/Lutein [Centrum Silver Tablet] 1 tab PO HS 09/18/17 [History] Pravastatin Sodium [Pravachol] 40 mg PO DAILY 09/18/17 [History] Vitamin B Complex Vit C No.4 [Super B Complex] 1 tab PO HS 09/18/17 [History] Metformin HCl [Glucophage] 1,000 mg PO BID #90 09/19/17 [Rx] Acetaminophen [Pain Relief] 1,000 mg PO BID 11/11/17 [History] Meloxicam [Mobic] 7.5 mg PO DAILY 02/18/18 [History] Oxybutynin [Ditropan] 5 mg PO DAILY 06/18/18 [History] HYDROcodone/Acet 5/325 mg [[place] 5-325 mg] 1 tab PO Q6H PRN 10 Days #3 tab 08/02/18 [Rx] Oxybutynin [Ditropan] 5 mg PO TID #30 tablet 08/02/18 [Rx] Allergies/Adverse Reactions: Allergy/AdvReac Type Severity Reaction Status Date / Time Penicillins Allergy Hives Verified 08/02/18 12:03 Date of admission: 09/07/18 15:40 Primary care physician: Kofi Reeves MD Consults: 09/07/18 17:45 Consult to Nutrition [CONS] Routine Comment: Hypoalbuminemia is a marked concern Consulting Provider: NUTRITION Reason for Dietary Consult: MST Score Consult to Joinery Setter Out [CONS] Routine Reason for SW Consult: d/c planning 09/07/18 18:20 Consult to Physical Medicine/Rehab [CONS] Routine Reason for Consult: deconditioning Call Completed: No 09/07/18 18:21 Consult to Occupational Therapy [CONS] Routine Comment: Evaluate, develop and implement POC Reason for Consult: deconditioning Does patient have active BEDREST order?: No Is patient medically & hemodynamically stable?: Yes Patient assessed for mobility or mobilized this visit?: Yes Consult to Physical Therapy [CONS] Routine Comment: Evaluate, develop and implement POC Reason for Consult: deconditioning Does patient have active BEDREST order?: No Is patient medically & hemodynamically stable?: Yes Patient assessed for mobility or mobilized this visit?: No Consult to Recreational Therapy [CONS] Routine Comment: Evaluate, develop and implement POC 09/14/18 11:22 Consult to Psychology [CONS] Routine Consulting Provider: Anaya Funes Reason for Consult: Possible depression; adjustment disorder Call Completed: No Discharging clinician: Luis F Nava - Constitutional Vitals: Temp Pulse Resp BP Pulse Ox 98.7 F 92 16 143/80 93 09/15/18 07:00 09/15/18 07:00 09/15/18 07:00 09/15/18 07:00 09/15/18 07:00 General appearance: Present: cooperative, A&O X 3, pleasant, no acute distress, answers questions appropriately - Head Head exam: Present: atraumatic, normocephalic - Eye Eye exam: Present: PERRL, conjuntiva pink, sclera anicteric Pupils: Present: PERRL - Neck Neck exam general surgery: Present: supple, trachea midline. Absent: lymphadenopathy - Respiratory Respiratory exam: Present: CTAB. Absent: accessory muscle use, rales, rhonchi, wheezes - Cardiovascular Cardiovascular exam: Present: RRR, +S1, +S2. Absent: diastolic murmur, gallop, rubs, systolic murmur - GI/Abdominal GI/Abdominal exam: Present: normal bowel sounds, soft, no peritoneal signs. Absent: distended, tenderness - Additional comments: Patient has a right lower quadrant ileal conduit with stoma appearing healthy and cloudy yellow urine received. Appliance appears intact. Surgical wounds from his cystectomy appear to be healing well. Left lower quadrant drainage wound continues have scant amount of serous-appearing drainage received - Extremities Exam Extremities exam: Present: warm, radial pulses palpable and symmetrical. Absent: calf tenderness, cyanotic, pedal edema - Neurological Exam Neurological exam: Present: CN II-XII intact, oriented X3, no focal deficits. Absent: pronater drift, facial droop, speech deficit - Skin Skin exam: Present: dry, intact - Patient Status Disposition: Home Health Service Condition: Good Functional capacity at discharge: uses cane/walker Overall status at discharge: patient is progressing back to baseline - Ambulatory Orders Ambulatory Orders: Urinalysis Reflex [facility] [URIN] Location: None Selected - Discharge Instructions Follow Up With: Kofi Reeves MD [Primary Care Provider] - - Diet and Activity Activity: ambulate only with your walker, as per physical therapy Diet: diabetic diet, low fat, low cholesterol
--- NOTE | 2018-09-15 10:12 | Physician Discharge Referral ---
Addendum entered and electronically signed by Luis F Nava MD 09/15/18 10:41: Original Note: Home Health/Hosp Referral Info Transfer to: Home Health Provider in Charge Post Discharge: PCP - Diagnosis (1) Bladder cancer Priority: Primary Status: Chronic (2) Diabetes Priority: Secondary Status: Chronic - Respiratory Orders Smoking Cessation: Smoking cessation has been advised. For more information, call the [place] Tobacco Quit Line at 7-396-YVOB-NOW. - Diet/Nutrition Diet/Nutrition Orders: No Concentrated Sweets - Activity Activity Orders: Up ad monique, Walker - Services Needed Following services are medically necessary services: Nursing, Home Health Aide, Physical Therapy, Occupational Therapy - Transfer Medications Home Medications: Glucosamine/D3/Boswellia Massiel [Osteo Bi-Flex Tablet] 2 tab PO HS 11/27/16 [History] Lansoprazole [Prevacid] 60 mg PO BID 11/27/16 [History] Polyethylene Glycol 3350 [MiraLAX] 17 gm PO DAILY 11/27/16 [History] Ubidecarenone [Co Q-10] 200 mg PO DAILY 11/27/16 [History] Gabapentin [Neurontin] 300 mg PO TID 01/08/17 [History] Glimepiride [Amaryl] 4 mg PO DAILY PRN 01/08/17 [History] Lisinopril [Zestril] 20 mg PO DAILY 01/08/17 [History] Aspirin 81 mg PO DAILY 09/18/17 [History] Docusate Sodium [Dok] 100 mg PO HS 09/18/17 [History] Escitalopram [Lexapro] 10 mg PO BID 09/18/17 [History] Levothyroxine [Synthroid] 50 mcg PO QAM 09/18/17 [History] Multivit-Min/FA/Lycopen/Lutein [Centrum Silver Tablet] 1 tab PO HS 09/18/17 [History] Pravastatin Sodium [Pravachol] 40 mg PO DAILY 09/18/17 [History] Vitamin B Complex Vit C No.4 [Super B Complex] 1 tab PO HS 09/18/17 [History] Metformin HCl [Glucophage] 1,000 mg PO BID #90 09/19/17 [Rx] Acetaminophen [Pain Relief] 1,000 mg PO BID 11/11/17 [History] Meloxicam [Mobic] 7.5 mg PO DAILY 02/18/18 [History] Oxybutynin [Ditropan] 5 mg PO DAILY 06/18/18 [History] HYDROcodone/Acet 5/325 mg [Hollis 5-325 mg] 1 tab PO Q6H PRN 10 Days #3 tab 1 [Rx] Oxybutynin [Ditropan] 5 mg PO TID #30 tablet 08/02/18 [Rx] Allergies/Adverse Reactions: Allergy/AdvReac Type Severity Reaction Status Date / Time Penicillins Allergy Hives Verified 08/02/18 12:03 Certification: Further, I certify that my clinical findings support that this patient is homebound (i.e. absences from home require considerable and taxing effort and are for medical reasons or rastafarian services or infrequently or short duration when for other reasons) because: Homebound Reason: Post-surgery restriction and or conditions limit ability to leave home, Leaving home requires considerable and taxing effort due to condition Attestation: My signature below is to certify that this patient is under my care and that I, or nurse practitioner, or a physician's assistant vice president working with me, has a [id number] encounter with this patient.
--- NOTE | 2018-09-15 13:10 | Psychological Evaluation ---
Date of Encounter: 09/15/18 Time of Encounter: 11:00 History of Present Illness History of present illness: Mr. Ramirez is a 78 year old male admitted to rehab s/p cystectomy and prostatectomy. Ambulating with Walker in hallway with contact guard as Past medical history includes anxiety, CAD, hypothyroidism diabetes, Gerd, hyperlipidemia, hypertension, kidney stone, malignant neoplasm of the bladder and obstructive sleep apnea. Past Medical History - Psychiatric History Psychiatric history: Reports: other. Denies: no psych history Home Medications and Allergies Glucosamine/D3/Boswellia Massiel [Osteo Bi-Flex Tablet] 2 tab PO HS 11/27/16 [History] Lansoprazole [Prevacid] 60 mg PO BID 11/27/16 [History] Polyethylene Glycol 3350 [MiraLAX] 17 gm PO DAILY 11/27/16 [History] Ubidecarenone [Co Q-10] 200 mg PO DAILY 11/27/16 [History] Gabapentin [Neurontin] 300 mg PO TID 01/08/17 [History] Glimepiride [Amaryl] 4 mg PO DAILY PRN 01/08/17 [History] Lisinopril [Zestril] 20 mg PO DAILY 01/08/17 [History] Aspirin 81 mg PO DAILY 09/18/17 [History] Docusate Sodium [Dok] 100 mg PO HS 09/18/17 [History] Escitalopram [Lexapro] 10 mg PO BID 09/18/17 [History] Levothyroxine [Synthroid] 50 mcg PO QAM 09/18/17 [History] Multivit-Min/FA/Lycopen/Lutein [Centrum Silver Tablet] 1 tab PO HS 09/18/17 [History] Pravastatin Sodium [Pravachol] 40 mg PO DAILY 09/18/17 [History] Vitamin B Complex Vit C No.4 [Super B Complex] 1 tab PO HS 09/18/17 [History] Metformin HCl [Glucophage] 1,000 mg PO BID #90 09/19/17 [Rx] Acetaminophen [Pain Relief] 1,000 mg PO BID 11/11/17 [History] Meloxicam [Mobic] 7.5 mg PO DAILY 02/18/18 [History] Oxybutynin [Ditropan] 5 mg PO DAILY 06/18/18 [History] HYDROcodone/Acet 5/325 mg [[facility] 5-325 mg] 1 tab PO Q6H PRN 10 Days #3 tab 08/02/18 [Rx] Oxybutynin [Ditropan] 5 mg PO TID #30 tablet 08/02/18 [Rx] Insulin DETEMIR [Levemir] 15 unit SQ HS #1 mls 09/15/18 [Rx] Insulin LISPRO [Humalog] 100 unit SQ ACHS #1 cartridge 09/15/18 [Rx] Allergy/AdvReac Type Severity Reaction Status Date / Time Penicillins Allergy Hives Verified 08/02/18 12:03 Social History - Social History Social History: Pt 58 years and has 4 adult children and numerous grandchildren. Family is large and supportive. High school graduate and stated he had attention issues in school.He is retired since 2004. Work was in farming, production, and construction. - Tobacco Use Smokeless Tobacco Status: No Have you smoked in the last 12 months: No - Alcohol Use Alcohol Use: none - Drug Use Drug Use: none Cognitive/Emotional Assessment - Cognitive Ability Abstract Thinking Ability: No Deficits Noted Verbal Communication Ability: Conversational Style Problem Solving Ability: Able To Solve Simple Problems Level of Alertness: Alert Orientation: Person, Place, Month, Year Ability to Follow Directions: Good Speech Pattern: Normal rate Additional Findings: Not able to do serial 3's; double digit math subtraction; 3/3words immediate; 3/3 words after 5min delay; 4 digits forward; confused with digits backward thus none; unable to spell WORLD forward or backward but ststed can read just poor spelling. Knew Pres; previous Pres; and Gov. Did state he "gets confused sometimes".He further noted does not like to be around a lot of noise. - Emotional Status Mood Description: Depressed Affect Description: Flat Coping Ability: Verbalizes positive coping skills Additional Findings: Stated mood is "not very good" He stated he will work on it at home. Assessment & Plan - Diagnosis (1) Adjustment disorder with depressed mood - Prognosis Prognosis: Good - Treatment Plan Treatment Plan/Recommendations: Beeing discharged and does not want furthre involvement. Treatment Frequency: DC Procedures - Participants Therapy Participant: Patient - Session Time Session Start Time: 11:00 Session Stop Time: 11:30
[2018-09-15] MEDS: (Ubidecarenone [Co Q-10] 200 MG) PO SCH (14:57)
== END 2018-09-15 14:40 | disposition home health service (06) | DRG 688 ==
LOC: INPGRE 09-07 15:40
PROVIDERS: ADMIT Internal Medicine; ATTEND Internal Medicine

== ENCOUNTER 2019-02-18 13:12 | Observation (INO) ==
--- NOTE | 2019-02-18 14:17 | Internal Med History&Physical ---
Date of Encounter: 02/18/19 Time of Encounter: 14:15 Assessment and Plan (1) Anemia Current visit: Yes Status: Acute Hemoglobin 7.0. Likely delutional from IV fluids last night. Will repeat CBC this evening. No sign of bleeding. Patient asymptomatic. Qualifiers: Anemia type: unspecified type Qualified Code(s): D64.9 - Anemia, unspecified (2) Diabetes Current visit: Yes Status: Chronic Continue current medication. Monitor fingerstick blood sugar. Qualifiers: Diabetes mellitus type: type 2 Diabetes mellitus chcf insulin use: without extermination supervisor use Diabetes mellitus complication status: without complication Qualified Code(s): E11.9 - Type 2 diabetes mellitus without complications (3) Bladder cancer Current visit: Yes Status: Chronic Follow-up with Dr. Anthony, oncologist as scheduled. Qualifiers: Bladder location: unspecified site Qualified Code(s): C67.9 - Malignant neoplasm of bladder, unspecified (4) HTN (hypertension) Current visit: Yes Status: Acute Stable. Continue current medication. Monitor blood pressure. Qualifiers: Hypertension type: unspecified Qualified Code(s): I10 - Essential (primary) hypertension (5) Acute kidney injury Current visit: Yes Status: Acute Creatinine 1.54 today. Improved from yesterday 1.77. Will repeat BMP in am. Internal Medicine - H&P: HPI Admitted From: Intrahospital Transfer Plans for Post Hospital Care: Home History of present illness: Mr. Ramirez is a 78 year old male discharging from rehab due to meeting functional goals with physical therapy and occupational therapy. However, he has had some medical complications and will be admitting as observation or possible medical and patient. Diagnosed with UTI, after becoming increasingly week, fatigue with a low-grade fever yesterday, which requires IV antibiotics, has had chronic anemia which worsens and his hemoglobin is 7.0. He is asymptomatic at this time. Patient was scheduled to discharge to home with today and was scheduled for outpatient CT scan of abdomen and pelvis with contrast ordered by Dr. Anthony, oncologist. This test is being held due to creatinine level of 1.54. Creatinine was 1.77 yesterday and improved after having fluids. at bedside. Past Med Surg Social Fam HX - Past Medical History Medical history: cancer, coronary artery disease, diabetes, GERD, hyperlipidemia, hypertension, kidney stones, renal disease, thyroid disease Additional medical history: Bladder Cancer Psychiatric history: anxiety, depression - Past Surgical History Surgical History: cancer surgery, cataract, orthopedic, other, other Additional surgical history: Right kidney removal. bladder removal. lymph node removal. bilateral shoulder repair - Social History Smoking Status: Never smoker Smokeless Tobacco Status: No Alcohol use: none Drug use: none - Family History Father Adopted: No Family Member Ethnicity: Non- Living Status: Hx Family Cardiac Disorders: No Hx Family Respiratory Disorders: No Hx Family Cancer: Yes (prostate ca met.) Hx Family GI Disorders: No Hx Family Endocrine Disorder: No Hx Family Neuromuscular Disorders: No Hx Family Neurologic Disorders: No Hx Family HEENT Disorders: No Hx Family Autoimmune Disorders: No Mother Living Status: Hx Family Cardiac Disorders: Yes Hx Family Cancer: Yes Hx Family Endocrine Disorder: Yes (diabetes) Internal Medicine - H&P: Meds Lansoprazole [Prevacid] 30 mg PO QPM 11/27/16 [History] Polyethylene Glycol 3350 [MiraLAX] 17 gm PO DAILY 11/27/16 [History] Ubidecarenone [Co Q-10] 200 mg PO QAM 11/27/16 [History] Gabapentin [Neurontin] 300 mg PO TID 01/08/17 [History] Glimepiride [Amaryl] 4 mg PO QAM PRN 01/08/17 [History] Docusate Sodium [Dok] 100 mg PO HS 09/18/17 [History] Levothyroxine [Synthroid] 50 mcg PO QAM 09/18/17 [History] Pravastatin Sodium [Pravachol] 40 mg PO DAILY 09/18/17 [History] Acetaminophen [Pain Relief] 650 mg PO Q6H PRN 11/11/17 [History] Patiromer Calcium Sorbitex [Veltassa] 8.4 gm PO DAILY 12/31/18 [History] Escitalopram [Lexapro] 10 mg PO BID 02/01/19 [History] Fluticasone Propionate Nasal [Flonase] 2 spr NS DAILY PRN 02/01/19 [History] Gluc/Daniele-MSM#1/C/Guevara/Giorgi/Bor [Osteo Bi-Flex Caplet] 2 each PO QPM 02/01/19 [History] Hydrocodone/Acetaminophen [Cedar 5-325 Tablet] 1 each PO Q6H 7 Days #28 tablet 04/22/19 [Rx] Magnesium Oxide [Magnesium] 400 mg PO DAILY 02/14/19 [History] Allergy/AdvReac Type Severity Reaction Status Date / Time Penicillins Allergy Numbness Verified 02/14/19 13:06 All Systems PM: A 10-system review of systems was performed and is negative for pertinent findings except as documented above in the HPI. - Constitutional Constitutional: no chills, no fever(s), no night sweats - EENT Eyes: no change in vision, no discharge, no pain, no photophobia Ears: no ear discharge, no ear pain, no tinnitus Nose, mouth and throat: no dysphagia, no nasal discharge, no neck pain, no sore throat - Cardiovascular Cardiovascular ROS IM: no chest pain, no diaphoresis, no dyspnea, no lightheadedness, no palpitations, no syncope - Respiratory Respiratory: no cough, no dyspnea, no wheezing, no excessive phlegm production - Gastrointestinal Gastrointestinal: no abdominal pain, no diarrhea, no hematemesis, no hematochezia, no melena, no nausea, no vomiting - Musculoskeletal Musculoskeletal ROS IM: no numbness, no tingling - Integumentary Integumentary IM: no rash, no unusual bruising - Neurological Neurological ROS: no confusion, no convulsions, no focal weakness, no numbness, no tingling, no tremor(s) - Hematologic/Lymphatic Hematologic/Lymphatic: no easy bruising - Head Head exam: Present: atraumatic, normocephalic - Eye Eye exam: Present: PERRL, conjuntiva pink, sclera anicteric Pupils: Present: PERRL - Neck Neck exam general surgery: Present: supple, trachea midline. Absent: lymphadenopathy - Respiratory Respiratory exam: Present: CTAB. Absent: accessory muscle use, rales, rhonchi, wheezes - Cardiovascular Cardiovascular exam: Present: RRR, +S1, +S2. Absent: diastolic murmur, gallop, rubs, systolic murmur - GI/Abdominal GI/Abdominal exam: Present: normal bowel sounds, soft, no peritoneal signs. Abs ent: distended, tenderness - Extremities Exam Extremities exam: Present: warm, radial pulses palpable and symmetrical. Absent: calf tenderness, cyanotic, pedal edema - Neurological Exam Neurological exam: Present: CN II-XII intact, oriented X3, no focal deficits. Absent: pronater drift, facial droop, speech deficit - Skin Skin exam: Present: dry, intact
[2019-02-18] MEDS ORDERED: *HR* Glimepiride 4 MG TABLET PO PRN (14:31)
[2019-02-18] MEDS ORDERED: Fluticasone Propionate Nasal 50 MCG/SPRAY BOTTLE NS PRN (14:31)
[2019-02-18] MEDS ORDERED: Ondansetron ODT 4 MG TAB.RAPDIS SL PRN (14:46)
[2019-02-18] MEDS ORDERED: Mag Hydrox/Al Hydrox/Simeth 30 ML UDC PO PRN (14:47)
[2019-02-18] MEDS ORDERED: tiZANidine 4 MG TABLET PO PRN (14:51)
[2019-02-18] MEDS ORDERED: traMADol 50 MG TABLET PO PRN (14:52)
[2019-02-18] MEDS ORDERED: Dextrose Gel 15 GM/37.5 ML TUBE PO PRN ×2 (15:00)
[2019-02-18] MEDS ORDERED: D5% in Water 1,000 ML IVC PRN (15:00)
[2019-02-18] MEDS ORDERED: *HR* Dextrose 50 % in Water (Syg) 50 ML SYRINGE IVP PRN (15:00)
[2019-02-18] MEDS: OSTEO BI FLEX PO SCH (16:51)
[2019-02-18] MEDS: Gabapentin 300 MG CAPSULE PO SCH ×2 (16:58→22:24)
[2019-02-18] MEDS: Insulin LISPRO 300 UNITS/3 ML VIAL SQ SCH ×2 (17:43→22:25)
[2019-02-18] MEDS ORDERED: Pantoprazole 40 MG VIAL IVP SCH (18:00)
[2019-02-18 18:56] LABS: Basophils % 0.1 %; Eosinophils # 0.1 K/mcL (0.0-0.6); Eosinophils % 0.6 %; Hematocrit 24.6 % (37.5-50.1); Hemoglobin 7.8 g/dL (12.9-16.9); Immature Granulocytes % 0.5 % (0-4); Lymphocytes # 1.9 K/mcL (0.6-4.6); Lymphocytes % 13.9 %; Mean Corpuscular HGB Conc 31.7 g/dL (31.6-35.5); Mean Corpuscular Hemoglobin 28.5 pg (28.0-33.3); Mean Corpuscular Volume 89.8 fL (83.0-100.0); Mean Platelet Volume 8.2 fL (9.4-12.4); Monocytes # 0.9 K/mcL (0.0-1.3); Monocytes % 6.7 %; Neutrophils # 10.9 K/mcL (1.6-8.9); Platelet Count 334 K/mcL (140-400); Red Blood Count 2.74 M/mcL (4.19-5.50); Red Cell Distribution Width 12.8 % (11.5-14.5); Segmented Neutrophils % 78.2 %; White Blood Count 13.9 K/mcL (4.3-11.1)
[2019-02-18] MEDS: Lactobacillus 1 EACH CAP.SPRINK PO SCH (22:23)
[2019-02-18] MEDS: Ascorbic Acid 500 MG TABLET PO SCH (22:24)
[2019-02-19] MEDS: Pantoprazole 40 MG VIAL IVP SCH ×2 (00:52→12:46)
[2019-02-19 07:19] LABS: Basophils % 0.2 %; Eosinophils # 0.1 K/mcL (0.0-0.6); Eosinophils % 0.4 %; Hematocrit 23.2 % (37.5-50.1); Hemoglobin 7.2 g/dL (12.9-16.9); Immature Granulocytes % 0.7 % (0-4); Lymphocytes # 2.4 K/mcL (0.6-4.6); Lymphocytes % 19.8 %; Mean Corpuscular Hemoglobin 28.1 pg (28.0-33.3); Mean Corpuscular Volume 90.6 fL (83.0-100.0); Mean Platelet Volume 8.6 fL (9.4-12.4); Monocytes # 1.1 K/mcL (0.0-1.3); Neutrophils # 8.4 K/mcL (1.6-8.9); Platelet Count 340 K/mcL (140-400); Red Blood Count 2.56 M/mcL (4.19-5.50); Red Cell Distribution Width 12.8 % (11.5-14.5); Segmented Neutrophils % 69.9 %
[2019-02-19 07:33] LABS: Calcium 9.2 mg/dL (8.6-10.3); Potassium 5.1 mEq/L (3.5-5.1)
[2019-02-19] MEDS: *HR* Enoxaparin 40 MG/0.4 ML SYRINGE SQ SCH (07:46)
[2019-02-19] MEDS: Lactobacillus 1 EACH CAP.SPRINK PO SCH ×2 (08:54→20:47)
[2019-02-19] MEDS: Ascorbic Acid 500 MG TABLET PO SCH ×2 (08:54→20:47)
[2019-02-19] MEDS: Gabapentin 300 MG CAPSULE PO SCH ×3 (08:54→20:47)
[2019-02-19] MEDS: Fluconazole 200 MG/100 ML 200 MG/100 ML BAG IVPB SCH (08:55)
[2019-02-19] MEDS: Insulin LISPRO 300 UNITS/3 ML VIAL SQ SCH ×4 (08:55→20:49)
[2019-02-19] MEDS: CO Q10 200 MG PO SCH (08:55)
--- NOTE | 2019-02-19 14:49 | Internal Med Progress Note ---
Date of Encounter: 02/19/19 Time of Encounter: 12:15 - Subjective Interval history: Assessment and Plan (1) Anemia Current visit: Yes Status: Acute Hemoglobin 7.0. Likely delutional from IV fluids last night. Will repeat CBC this evening. No sign of bleeding. Patient asymptomatic. Qualifiers: Anemia type: unspecified type Qualified Code(s): D64.9 - Anemia, unspecified (2) Diabetes Current visit: Yes Status: Chronic Continue current medication. Monitor fingerstick blood sugar. Qualifiers: Diabetes mellitus type: type 2 Diabetes mellitus long term care social worker insulin use: without mcc use Diabetes mellitus complication status: without complication Qualified Code(s): E11.9 - Type 2 diabetes mellitus without complications (3) Bladder cancer Current visit: Yes Status: Chronic Follow-up with Dr. Anthony, oncologist as scheduled. Qualifiers: Bladder location: unspecified site Qualified Code(s): C67.9 - Malignant neoplasm of bladder, unspecified (4) HTN (hypertension) Current visit: Yes Status: Acute Stable. Continue current medication. Monitor blood pressure. Qualifiers: Hypertension type: unspecified Qualified Code(s): I10 - Essential (primary) hypertension (5) Acute kidney injury with hyperkalemia Current visit: Yes Status: Acute Creatinine remains about 1.5 with slight variations Will repeat BMP in am. continue treatment of hyperkalemia and repeat labs q am for now ( 6) anxiety and depression denies SI reports difficult to have 'all those parts removed' Pt will need to go off lexapro as interacts with antibiotic - limited choices and pt is symptomatic will start low dose zyprexa at hs 2.5 ( 7) GERD with symptom of gastritis just started on IV pantoprazole 40 bid some relief complicated by fungal esophagitis reducing his appetite recent started on iv diflican with some relief continue zofran prn encourage diet start megace ( 8) sepsis -( presepsis ) improving urinary tract source recent urostomy and unilat nephrect for met bladder ca tachycardia fever confusion IV fluids IV invance is helping his symptoms but sens today show this enterococcus is VRE infection precautions discussed with pharmacy will add linazolid IV 600 mg bid Interval HX Mr. Ramirez was DC from rehab and admitted to medical as observation 02/18. Diagnosed with UTI, he was showing early sepsis symptoms and requires IV antibiotics and other medical care. He today is showing some improvement He is still sad, also not eating well. H has some diarrhea reports his gerd symptoms some what better reports less myalgia confusion has cleared and he is oriented EXAM: GENERAL WM withdrawn and quiet oriented and responsive HEENT white exudate - thrush and dry oral mucosa - Neck Neck exam general surgery: Present: supple, trachea midline. Absent: lymphadenopathy - Respiratory Respiratory exam: Present: CTAB. Absent: accessory muscle use, rales, rhonchi, wheezes - Cardiovascular Cardiovascular exam: Present: RRR, +S1, +S2. Absent: diastolic murmur, gallop, rubs, systolic murmur - GI/Abdominal GI/Abdominal exam: Present: normal bowel sounds, soft, no peritoneal signs. mild distention over epigastrum BS hyperactive urine in bag shows white debri - Extremities Exam Extremities exam: Present: warm, radial pulses palpable and symmetrical. Absent: calf tenderness, cyanotic, pedal edema - Neurological Exam Neurological exam: Present: CN II-XII intact, oriented X3, no focal deficits. Absent: pronater drift, facial droop, speech deficit - Skin Skin exam: Present: dry, intact - Constitutional Vitals: Temp Pulse Resp BP Pulse Ox 98.0 F 83 16 127/72 98 02/19/19 12:05 02/19/19 12:05 02/19/19 12:05 02/19/19 12:05 02/19/19 12:05 Internal Medicine: Result - Labs CBC & Chem 7: 02/19/19 05:50 02/19/19 05:50 Labs: Short CBC 02/18/19 02/19/19 Range/Units 18:50 05:50 WBC 13.9 H 12.0 H (4.3-11.1) K/mcL Hgb 7.8 L 7.2 L (12.9-16.9) g/dL Hct 24.6 L 23.2 L (37.5-50.1) % Plt Count 334 340 (140-400) K/mcL Neutrophils # 10.9 H 8.4 (1.6-8.9) K/mcL BMP 02/19/19 05:50 Sodium 133 L Potassium 5.1 Chloride 104 Carbon Dioxide 25 BUN 25 H Creatinine 1.47 H Glucose 156 H Calcium 9.2 Consult Discharge Plan - Plan Referrals: Luis F Nava MD [Primary Care Provider] -
[2019-02-19] MEDS: OSTEO BI FLEX PO SCH (15:59)
[2019-02-19] MEDS: OLANZapine 5 MG TAB.RAPDIS PO SCH (20:48)
[2019-02-20] MEDS: Pantoprazole 40 MG VIAL IVP SCH ×2 (00:16→12:44)
[2019-02-20 05:38] LABS: Basophils % 0.2 %; Eosinophils # 0.1 K/mcL (0.0-0.6); Eosinophils % 1.1 %; Hemoglobin 6.9 g/dL (12.9-16.9); Immature Granulocytes % 0.7 % (0-4); Lymphocytes # 2.1 K/mcL (0.6-4.6); Mean Corpuscular HGB Conc 31.4 g/dL (31.6-35.5); Mean Corpuscular Hemoglobin 27.9 pg (28.0-33.3); Mean Corpuscular Volume 89.1 fL (83.0-100.0); Mean Platelet Volume 8.3 fL (9.4-12.4); Monocytes % 9.4 %; Neutrophils # 7.3 K/mcL (1.6-8.9); Platelet Count 334 K/mcL (140-400); Red Blood Count 2.47 M/mcL (4.19-5.50); Red Cell Distribution Width 12.6 % (11.5-14.5); Segmented Neutrophils % 68.6 %; White Blood Count 10.7 K/mcL (4.3-11.1)
[2019-02-20] MEDS: Acetaminophen 325 MG TABLET PO PRN ×2 (06:03→20:12)
[2019-02-20] MEDS: *HR* Enoxaparin 40 MG/0.4 ML SYRINGE SQ SCH (06:04)
[2019-02-20] MEDS: Ascorbic Acid 500 MG TABLET PO SCH ×2 (09:04→20:12)
[2019-02-20] MEDS: Lactobacillus 1 EACH CAP.SPRINK PO SCH ×2 (09:04→20:12)
[2019-02-20] MEDS: Gabapentin 300 MG CAPSULE PO SCH ×3 (09:04→20:12)
[2019-02-20] MEDS: Insulin LISPRO 300 UNITS/3 ML VIAL SQ SCH ×4 (09:04→21:31)
[2019-02-20] MEDS: Fluconazole 200 MG/100 ML 200 MG/100 ML BAG IVPB SCH (09:05)
[2019-02-20] MEDS: CO Q10 200 MG PO SCH (09:05)
[2019-02-20 11:25] LABS: Iron < 10 mcg/dL (65-175); Transferrin 145 mg/dL (203-362)
[2019-02-20] MEDS ORDERED: Cyanocobalamin (B-12) 1,000 MCG/ML VIAL SQ ONE (13:26)
--- NOTE | 2019-02-20 13:45 | Internal Med Progress Note ---
Date of Encounter: 02/20/19 Time of Encounter: 01:30 - Subjective Interval history: Assessment and Plans (1) sepsis -( presepsis ) improving and currently mainly resolved urinary tract source recent urostomy and unilat nephrect for met bladder ca tachycardia fever confusion days ago started on renal dose invance 500 mg daily IV that helped his symptoms urine culture grew enterococcus that now is VRE identified 02/19 and started on IV linazolid 600 mg BID as not renal dosed today he is improving and afebrile no tachy Luekocytosis improving (2) Anemia Current visit: Yes Status: Acute Hemoglobin has hovered around 7.0. No sign of bleeding. Patient asymptomatic. he is on oral iron and has hx iron deficiency he not absorbing well Iron level very low b12 level low normal will give IV iron sucrose daily 250 mg start today will continue po iron will give one time IM b12 and start oral b12 once daily continue to monitor Qualifiers: Anemia type: unspecified type Qualified Code(s): D64.9 - Anemia, unspecified (3) Diabetes Current visit: Yes Status: Chronic Continue current medication. Monitor fingerstick blood sugar. Qualifiers: Diabetes mellitus type: type 2 Diabetes mellitus mcc insulin use: without moth exterminator use Diabetes mellitus complication status: without complication Qualified Code(s): E11.9 - Type 2 diabetes mellitus without complications (4 Bladder cancer Current visit: Yes Status: Chronic Follow-up with Dr. Anthony, oncologist as scheduled. had recent CT chest without and brain scan before he came here oncology advised CT abd pel with contrast as outpt when renal function improved for monitoring purpose Qualifiers: Bladder location: unspecified site Qualified Code(s): C67.9 - Malignant neoplasm of bladder, unspecified (5) HTN (hypertension) Current visit: Yes Status: Acute Stable. Continue current medication. Monitor blood pressure. Qualifiers: Hypertension type: unspecified Qualified Code(s): I10 - Essential (primary) hypertension (6) Acute kidney injury with hyperkalemia Current visit: Yes Status: Acute Creatinine remains about 1.5 with slight variations Will repeat BMP in am. continue treatment of hyperkalemia and repeat labs q am for now ( 7) anxiety and depression denies SI reports difficult to have 'all those parts removed' did go off lexapro as interacts with antibiotic - appears to be doing better off the lexapro, reported was making him sleepy all day mood is improved now on low dose hs zyprexa, he is interacting with family today some smiles, eating a fish sandwich with good interest pt should continue this for now zyprexa at hs 2.5 (8) GERD with symptom of gastritis - was severe and painful. now since started on IV pantoprazole 40 bid some relief and reports no pain today complicated by fungal esophagitis was reducing his appetite recent started on iv diflican with some relief reports better today and swallowing is improved not painful continue zofran prn - did not need today so far encourage diet eating better today on megace continue megace for now Interval HX Mr. Ramirez was DC from rehab and admitted to medical as observation 02/18. Diagnosed with UTI, he was showing early sepsis symptoms and requires IV antibiotics and other medical care. He was withdrawn and not eating. HE became weak and febrile and confused. treatments were initiated Discussions with pt and about each treatment and all issues. They voice understanding and agree to plans of care. Mood is much improved today EXAM: GENERAL WM improved eye contact sitting up and eating well more interactive with family oriented and responsive HEENT white exudate - thrush and dry oral mucosa - Neck Neck exam general surgery: Present: supple, trachea midline. Absent: lymphadenopathy - Respiratory Respiratory exam: Present: CTAB. Absent: accessory muscle use, rales, rhonchi, wheezes - Cardiovascular Cardiovascular exam: Present: RRR, +S1, +S2. Absent: diastolic murmur, gallop, rubs, systolic murmur - GI/Abdominal GI/Abdominal exam: Present: normal bowel sounds, soft, no peritoneal signs. mild distention over epigastrum BS hyperactive urine in bag shows white debri - Extremities Exam Extremities exam: Present: warm, radial pulses palpable and symmetrical. Absent: calf tenderness, cyanotic, pedal edema - Neurological Exam Neurological exam: Present: CN II-XII intact, oriented X3, no focal deficits. Absent: pronater drift, facial droop, speech deficit - Skin Skin exam: Present: dry, intact - Constitutional Vitals: Temp Pulse Resp BP Pulse Ox 97.1 F L 88 16 121/73 96 02/20/19 12:57 02/20/19 12:57 02/20/19 12:57 02/20/19 09:00 02/20/19 12:57 Internal Medicine: Result - Labs CBC & Chem 7: 02/20/19 05:30 02/19/19 05:50 Labs: Short CBC 02/20/19 Range/Units 05:30 WBC 10.7 (4.3-11.1) K/mcL Hgb 6.9 L (12.9-16.9) g/dL Hct 22.0 L (37.5-50.1) % Plt Count 334 (140-400) K/mcL Neutrophils # 7.3 (1.6-8.9) K/mcL Consult Discharge Plan - Plan Referrals: Luis F Nava MD [Primary Care Provider] -
[2019-02-20] MEDS: OSTEO BI FLEX PO SCH (17:36)
[2019-02-20] MEDS: Iron Sucrose Complex 250 MG in 0.9 % Sodium Chloride 250 ML IVPB SCH (20:11)
[2019-02-20] MEDS: OLANZapine 5 MG TAB.RAPDIS PO SCH (20:20)
[2019-02-21] MEDS: Pantoprazole 40 MG VIAL IVP SCH ×2 (00:47→12:54)
[2019-02-21 05:56] LABS: Basophils % 0.2 %; Eosinophils # 0.2 K/mcL (0.0-0.6); Eosinophils % 1.3 %; Hematocrit 25.3 % (37.5-50.1); Immature Granulocytes % 0.7 % (0-4); Lymphocytes # 2.4 K/mcL (0.6-4.6); Mean Corpuscular HGB Conc 31.6 g/dL (31.6-35.5); Mean Corpuscular Hemoglobin 28.1 pg (28.0-33.3); Mean Corpuscular Volume 88.8 fL (83.0-100.0); Mean Platelet Volume 8.2 fL (9.4-12.4); Monocytes # 1.1 K/mcL (0.0-1.3); Monocytes % 8.7 %; Platelet Count 354 K/mcL (140-400); Red Blood Count 2.85 M/mcL (4.19-5.50); Red Cell Distribution Width 12.8 % (11.5-14.5); Segmented Neutrophils % 69.1 %; White Blood Count 12.1 K/mcL (4.3-11.1)
[2019-02-21] MEDS: *HR* Enoxaparin 40 MG/0.4 ML SYRINGE SQ SCH (06:02)
[2019-02-21 06:11] LABS: BUN/Creatinine Ratio 17 (6-26); Blood Urea Nitrogen 23 mg/dL (8-23); Calcium 10.4 mg/dL (8.6-10.3); Carbon Dioxide 28 mEq/L (23-29); Chloride 102 mEq/L (98-107); Glucose 170 mg/dL (70-105); Osmolality,Calculated 288 (280-300); Potassium 4.7 mEq/L (3.5-5.1); Sodium 135 mEq/L (136-145); eGFR For African Americans > 60 (> 60); eGFR For Non-African Americans 52 (> 60)
[2019-02-21 06:27] LABS: Neutrophils # 8.4 K/mcL (1.6-8.9)
[2019-02-21] MEDS ORDERED: Cyanocobalamin (B-12) 1,000 MCG TABLET PO SCH (09:00)
[2019-02-21] MEDS: Insulin LISPRO 300 UNITS/3 ML VIAL SQ SCH ×4 (09:44→21:29)
[2019-02-21] MEDS: Lactobacillus 1 EACH CAP.SPRINK PO SCH ×2 (09:45→21:28)
[2019-02-21] MEDS: Fluconazole 200 MG/100 ML 200 MG/100 ML BAG IVPB SCH (09:45)
[2019-02-21] MEDS: Gabapentin 300 MG CAPSULE PO SCH (09:46)
[2019-02-21] MEDS: CO Q10 200 MG PO SCH (09:46)
[2019-02-21] MEDS: Ascorbic Acid 500 MG TABLET PO SCH ×2 (09:46→21:29)
[2019-02-21] MEDS: Iron Sucrose Complex 250 MG in 0.9 % Sodium Chloride 250 ML IVPB SCH (09:59)
--- NOTE | 2019-02-21 11:35 | Internal Med Progress Note ---
Date of Encounter: 02/21/19 Time of Encounter: 11:33 - Assessment and plan (1) Anemia Current Visit: Yes Status: Acute Assessment and plan: Hemoglobin 8.0. Has been improving slightly. On iron sucrose IV. Qualifiers: Anemia type: unspecified type Qualified Code(s): D64.9 - Anemia, unspecified (2) Diabetes Current Visit: Yes Status: Chronic Assessment and plan: Stable. Continue current medication. Monitor fingerstick blood sugar. Qualifiers: Diabetes mellitus type: type 2 Diabetes mellitus fdc insulin use: without moth exterminator use Diabetes mellitus complication status: without co mplication Qualified Code(s): E11.9 - Type 2 diabetes mellitus without co mplications (3) Bladder cancer Current Visit: Yes Status: Chronic Assessment and plan: Follow-up with Dr. Anthony, oncologist as scheduled. Qualifiers: Bladder location: unspecified site Qualified Code(s): C67.9 - Malignant neoplasm of bladder, unspecified (4) HTN (hypertension) Current Visit: Yes Status: Acute Assessment and plan: Stable. Continue current medication. Monitor blood pressure. Qualifiers: Hypertension type: unspecified Qualified Code(s): I10 - Essential (primary) hypertension (5) Acute kidney injury Current Visit: Yes Status: Acute Assessment and plan: Creatinine improve 1.33. Encourage PO fluids. (6) Sepsis Current Visit: Yes Status: Acute Assessment and plan: Continue IV antibiotics. White blood cell count 12.1 today. This is increased over the past couple days. Will discuss with Dr. Ruffin. Qualifiers: Sepsis type: sepsis due to unspecified organism Qualified Code(s): A41.9 - Sepsis, unspecified organism - Time Spent With Patient 25 - 35 minutes - Subjective Interval history: Patient complaining of increased fatigue today. Denies fever, chills, nausea vomiting or diarrhea. States he is just week and does not feel like he can get out of bed today. at bedside. Patient has been treated for sepsis. Positive VRE in urine. Patient on contact precautions. Continues to be on IV antibiotics. states he was feeling great yesterday and this morning started to feel bad. - Constitutional Vitals: Temp Pulse Resp BP Pulse Ox 98.9 F 86 16 149/72 98 02/21/19 07:48 02/21/19 07:48 02/21/19 07:48 02/21/19 07:48 02/21/19 07:48 General appearance: Present: cooperative, A&O X 3, pleasant, no acute distress, answers questions appropriately - Head Head exam: Present: atraumatic, normocephalic - Eye Eye exam: Present: PERRL, conjuntiva pink, sclera anicteric Pupils: Present: PERRL - Neck Neck exam general surgery: Present: supple, trachea midline. Absent: lymphadenopathy - Respiratory Respiratory exam: Present: CTAB. Absent: accessory muscle use, rales, rhonchi, wheezes - Cardiovascular Cardiovascular exam: Present: RRR, +S1, +S2. Absent: diastolic murmur, gallop, rubs, systolic murmur - GI/Abdominal GI/Abdominal exam: Present: normal bowel sounds, soft, no peritoneal signs. Absent: distended, tenderness - Extremities Exam Extremities exam: Present: warm, radial pulses palpable and symmetrical. Absent: calf tenderness, cyanotic, pedal edema - Neurological Exam Neurological exam: Present: CN II-XII intact, oriented X3, no focal deficits. Absent: pronater drift, facial droop, speech deficit - Skin Skin exam: Present: dry, intact Internal Medicine: Result - Labs CBC & Chem 7: 02/21/19 05:45 02/21/19 05:45 Labs: Short CBC 02/21/19 Range/Units 05:45 WBC 12.1 H (4.3-11.1) K/mcL Hgb 8.0 L (12.9-16.9) g/dL Hct 25.3 L (37.5-50.1) % Plt Count 354 (140-400) K/mcL Neutrophils # 8.4 (1.6-8.9) K/mcL BMP 02/21/19 05:45 Sodium 135 L Potassium 4.7 Chloride 102 Carbon Dioxide 28 BUN 23 Creatinine 1.33 H Glucose 170 H Calcium 10.4 H Consult Discharge Plan - Plan Referrals: Luis F Nava MD [Primary Care Provider] -
[2019-02-21] MEDS: OSTEO BI FLEX PO SCH (16:45)
[2019-02-21] MEDS: VITAMIN A TP SCH ×2 (17:33→21:28)
[2019-02-21] MEDS: [UNRECOGNIZED DRUG - OTHER] TP SCH ×2 (17:33→21:28)
[2019-02-21] MEDS: OLANZapine 5 MG TAB.RAPDIS PO SCH (21:30)
[2019-02-21] MEDS: Acetaminophen 325 MG TABLET PO PRN (21:30)
[2019-02-22 00:50] VITALS: BP 111/66
[2019-02-22 01:06] LABS: Bilirubin,Urine Negative (Negative); Blood,Urine Trace-intact (Negative); Clarity,Urine Slightly Cloudy (Clear); Glucose,Urine (UA) Normal (Normal); Ketones,Urine Negative (Negative); Leukocyte Esterase,Urine Small (Negative); Nitrite,Urine Negative (Negative); Protein,Urine 100 mg/dL (Neg-Trace); Urobilinogen,Urine Normal (Normal)
[2019-02-22 01:11] LABS: Color,Urine Yellow (Yellow)
[2019-02-22 01:12] LABS: Amorphous Sediment,Urine Few (Few); Bacteria,Urine Few per hpf (None-Few); RBC,Urine 0-3 per hpf (0-3)
[2019-02-22 01:13] LABS: Mucus,Urine Few (Few)
[2019-02-22] MEDS: Pantoprazole 40 MG VIAL IVP SCH (01:25)
[2019-02-22] MEDS ORDERED: Insulin DETEMIR 100 UNIT/ML X5UNITS SQ SCH (09:00)
--- NOTE | 2019-04-02 18:53 | Discharge Summary ---
Date of Encounter: 04/02/19 Time of Encounter: 22:00 - Discharge Diagnosis (1) Sepsis Priority: Primary Status: Acute Qualifiers: Sepsis type: sepsis due to unspecified organism Qualified Code(s): A41.9 - Sepsis, unspecified organism (2) UTI (urinary tract infection) due to Enterococcus Priority: Primary Status: Acute (3) Bladder cancer Priority: Secondary Status: Chronic Qualifiers: Bladder location: unspecified site Qualified Code(s): C67.9 - Malignant neoplasm of bladder, unspecified Hospital course: Mr. Ramirez is a 78 year old male who was admit to [place] for rehab after being hospitalized for some time bladder cancer surgery with known mets and complications. He had electrolyte imbalance including severe hyper kalemia and renal failure. He had anemia. He had extensive urologic surgery including urostomy. While here he developed increased weakness and confusion and fever. He was found to have VRE UTI. He was transfered to inpatient medical on 02/18. His iron was very low and he got IV iron. K was managed with valtressa, and renal function did not improve. He was treated with appropriate IV antibiotics for urine and he got invance. He felt somewhat better but then a few days later despite treatments, he again became febrile, tachycardic, and confused. There was concern that he needed higher level of care and input from his surgeons. He was transferred to [place]. - EXAM - GEN moderate distress anxious and withdrawn confused at times HEENT no lesions - Neck Neck exam general surgery: Present: supple, trachea midline. Absent: lymphadenopathy - Respiratory Respiratory exam: Present: CTAB. Absent: accessory muscle use, rales, rhonchi, wheezes - Cardiovascular Cardiovascular exam: Present dist tones no systolic murmur - GI/Abdominal GI/Abdominal exam: Present: normal bowel sounds, soft, mild tenderness mod distention - Extremities Exam Extremities exam: Present: warm, radial pulses palpable and symmetrical. Absent: calf tenderness, cyanotic, pedal edema - Neurological Exam Neurological exam: Present: CN II-XII intact, confused and poorly cooperative Absent: pronater drift, facial droop, speech deficit - Skin Skin exam: Present: dry, intact - Time Spent with Patient Total time spent providing and/or coordinating discharge services: Time spent: Greater than 30 minutes - Discharge Medications Prescriptions: No Action Levothyroxine [Synthroid] 25 mcg PO DAILY@0630 tablet Calcium Carbonate [Tums] 1,000 mg PO Q4HR PRN tab.chew PRN Reason: Heartburn Lisinopril [Zestril] 30 mg PO DAILY tablet Home Medications: Calcium Carbonate [Tums] 1,000 mg PO Q4HR PRN tab.chew 02/28/19 [Rx] Levothyroxine [Synthroid] 25 mcg PO DAILY@0630 tablet 02/28/19 [Rx] Lisinopril [Zestril] 30 mg PO DAILY tablet 02/28/19 [Rx] Allergies/Adverse Reactions: Allergy/AdvReac Type Severity Reaction Status Date / Time Penicillins Allergy Numbness, Verified 02/22/19 19:48 Rash Date of admission: 02/18/19 13:58 Primary care physician: Luis F Nava MD Consults: 02/18/19 14:57 Consult to Vp Genetic [CONS] Routine Reason for SW Consult: Please evaluate for home situation and discharge planning Discharging clinician: Luba Ruffin Anticipated date of discharge: 02/21/19 - Constitutional Vitals: Temp Pulse Resp BP Pulse Ox 99.0 F 90 17 111/66 97 02/22/19 00:49 02/22/19 00:49 02/22/19 00:49 02/22/19 00:49 02/22/19 00:49 - Patient Status Disposition: Transfer Critical Access Hosp Condition: Fair Overall status at discharge: patient is not back to baseline - Discharge Instructions Follow Up With: Luis F Nava MD [Primary Care Provider] -
== END 2019-02-22 01:25 | disposition critical access hospital (66) ==
LOC: INPGRE